=== PATIENT | female | born 2005 | race Caucasian/White ===

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

== ENCOUNTER 2023-08-29 07:02 | Inpatient (IN) | payer BC, MEDICAID, SELFPAY ==
[2023-08-29] VITALS (63 sets, daily range): BP systolic 102–154; BP diastolic 53–88; PULSE 65–153; TEMP 36.3–37.6; O2SAT 96–100; BMI 31.1
--- NOTE | 2023-08-29 | PLAC_PTH ---
PATIENT: BRAYDON PEREZ LOC: [facility] U#:[id number] AGE/SX: 18/F ROOM: WP015 RE08/29/[address]: Dr. Sangeetha Mosley MD : 2005 BED: 1 DIS: 08/31/2023 SPEC #: [id number] RECD: 08/29/23 23:31 STATUS: RODRI NAHEED #: [id number] KRIS: 08/29/23 00:[address]: Sangeetha Mosley DEPT: SURGICAL PATHOLOGY RECD BY: Sujey Abarca ENTERED: 08/30/23 08:30 SP TYPE: PLACENTA OTHR DR: No Primary Care Phys Tissues: Placenta, NOS Procedures: Surgery Specimen Level V HEADER OPERATION: Vaginal delivery PRE-OP DIAGNOSIS: IUGR TISSUE SUBMITTED: Placenta MICROSCOPIC DIAGNOSIS Placenta: Placental disc - third trimester placenta (466 gm). - Focal peripheral area infarction, increased intervillous and perivillous fibrin deposition and calcifications. (1.5 cm in greatest dimension)> Membranes - mild acute chorioamnionitis. Umbilical cord - three blood vessels and no pathologic diagnosis. SJ:jensen 08/31/2023 MICROSCOPIC DESCRIPTION Slides are reviewed. GROSS DESCRIPTION SPECIMEN: PLACENTA / CLINICAL INFORMATION: A. Weight: 2.695 kg B. Gestational Age: 38 weeks C. Sex: Male PLACENTAL WEIGHT (POST FIXATION): 466 gm PLACENTAL DIMENSIONS: 17.0 x 15.0 x 3.0 cm PLACENTAL SHAPE: Usual ovoid PLACENTAL WEIGHT FOR GESTATIONAL AGE: Within 10-99th percentile MEMBRANES - Present A. Insertion: Marginal B. Site of rupture from edge: At edge of placental disc C. Color of membrane: Gonzalez-perkins D. Abnormalities: None UMBILICAL CORD - Present A. Color: Gonzalez-perkins B. Insertion: Eccentric and received in two pieces C. Length: 42.0 cm D. Diameter: 1.3 cm E. Number of vessels: Three F. Abnormalities: None PLACENTAL DISC - Present A. Color of surface: Gonzalez-perkins B. surface abnormalities: None C. Maternal cotyledons: Intact with minimal tears D. Attached retro placental clot: No clot E. Cut surface: Dark red and spongy F. Lesions: None G. Separate clot: 11.0 x 8.0 x 1.5 cm SECTIONS SUBMITTED: 1. Umbilical cord, end 2. Umbilical cord, placental end 3. Membrane roll 4. Placental disc, and maternal surfaces 5. Placental disc, and maternal surfaces 6. Placental disc, and maternal surfaces, peripheral portion AM:jensen 08/30/2023 TC:4 CPT: 80390
[2023-08-29] MEDS: Lactated Ringers 1,000 ML 50 ML IV (08:15)
[2023-08-29 08:51] LABS: Absolute Lymphocyte Count 2.69 X10^3/uL (0.83-4.51); Absolute Neutrophil Count 7.1 X10^3/uL (2.0-7.7); Basophil# 0.05 X10^3/uL; Basophil% 0.5 % (0-1); Eosinophil# 0.05 X10^3/uL; Eosinophils% 0.5 % (0-5); Hematocrit 35.6 % (37-47); Hemoglobin 11.2 g/dL (12.0-15.0); Lymphocyte # 2.69 X10^3/ul (0.83-4.51); Lymphocyte % 24.3 % (19-41); Mean Corp Hgb Conc 31.5 g/dL (32-36); Mean Corpuscular Hgb 27.4 pg (27.0-32.0); Mean Platelet Vol. 11.6 fl (6.2-12.0); Monocyte# 1.07 X10^3/uL; Monocyte% 9.7 % (0-10); NRBC Flagged by Analyzer 0 % (0-5); Neutrophil # 7.12 X10^3/uL (2.7-7.7); Neutrophil % 64.4 % (47-70); Platelet Count 330 K/mm3 (150-450); RBC Distribution Width CV 11.9 % (11.6-14.6); RBC Distribution Width SD 37.9 fl (35.1-43.9); Red Blood Count 4.09 M/mm3 (4.2-5.4); White Blood Count 11.1 K/mm3 (4.4-11.0)
[2023-08-29] MEDS: 0.9% Normal Saline Single 100 ML IV.SOLN. INTRA-UTER (09:07)
[2023-08-29 09:26] LABS: Syphilis Antibodies Non-reactive
[2023-08-29] MEDS: Oxytocin 15 Units/NS 250ml 15 UNITS/250 ML IV.SOLN 2 UNITS IV (09:33)
--- NOTE | 2023-08-29 12:36 | PCM.HP.OB ---
HPI - General General Date of Admission: 08/29/23 Date of Service: 08/29/23 Chief Complaint: induction of labor HPI Narrative BRAYDON PEREZ, is a 18 F who presents for induction of labor at 38-1/7 weeks gestation due to suspected intrauterine growth restriction. Estimated weight is below the 3rd percentile according to ultrasound performed in our office on 08/28/2023. BPP was 8 out of 8 that day and patient was scheduled for induction of labor today. She denies any vaginal bleeding or leaking of fluid. Had good movement. No regular contractions. Patient vomited during her glucose tolerance test and therefore checked blood sugars. She does not have gestational diabetes. Blood glucose levels were normal Maternal Data Information Final MIRA: 09/11/23 Gestational age: 38 1/7 PFSH PFSH Home Medications aspirin 81 mg tablet,delayed release (Adult Low Dose Aspirin) 81 mg PO DAILY Preventative pre-E. 08/29/23 [History Last Taken 08/28/23] vit 25-iron fum 30 mg iron-folate no6 1 mg-dha 200 mg capsule 1 cap PO DAILY 08/29/23 [History Last Taken 08/28/23] Allergy/AdvReac Type Severity Reaction Status Date / Time No Known Allergies Allergy Verified 03/11/19 21:28 Surgical History (Updated 08/29/23 @ 09:04 by Amarilis Braswell) History of esophageal surgery History of gastrointestinal surgery Social History Smoking Status: Never smoker History Elective abortions Hx Para 0 Spontaneous abortions Hx # Term Pregnancies Ectopic pregnancies Hx # Pregnancies Multiple births # of living children Vital Signs Vital Signs Vital Signs: 08/29/23 07:36 08/29/23 07:36 08/29/23 07:36 Temperature Temperature Source Temporal Pulse Rate 103 H Blood Pressure 134/74 H BP Systolic 134 BP Diastolic 74 Pulse Ox 08/29/23 07:36 08/29/23 08:13 08/29/23 08:13 Temperature 99.0 F Temperature Source Pulse Rate 94 Blood Pressure BP Systolic BP Diastolic Pulse Ox 100 08/29/23 08:18 08/29/23 08:18 08/29/23 08:58 Temperature Temperature Source Pulse Rate 73 Blood Pressure 125/72 H BP Systolic 125 BP Diastolic 72 Pulse Ox 98 08/29/23 08:58 08/29/23 08:58 08/29/23 08:58 Temperature 98.5 F Temperature Source Temporal Pulse Rate 98 Blood Pressure BP Systolic BP Diastolic Pulse Ox 08/29/23 10:10 08/29/23 10:10 08/29/23 10:10 Temperature Temperature Source Temporal Pulse Rate 83 Blood Pressure 134/78 H BP Systolic 134 BP Diastolic 78 Pulse Ox 08/29/23 10:10 08/29/23 11:02 08/29/23 11:03 Temperature 98.6 F Temperature Source Temporal Pulse Rate Blood Pressure 133/77 H BP Systolic 133 BP Diastolic 77 Pulse Ox 08/29/23 11:03 08/29/23 11:02 08/29/23 12:33 Temperature 98.4 F Temperature Source Pulse Rate 71 Blood Pressure 141/88 H BP Systolic 141 BP Diastolic 88 Pulse Ox 08/29/23 12:33 08/29/23 12:33 08/29/23 12:34 Temperature Temperature Source Temporal Pulse Rate 88 78 Blood Pressure BP Systolic BP Diastolic Pulse Ox 08/29/23 12:34 08/29/23 12:33 08/29/23 12:36 Temperature 98.1 F Temperature Source Pulse Rate Blood Pressure 128/82 H BP Systolic 128 BP Diastolic 82 Pulse Ox 99 08/29/23 12:36 Temperature Temperature Source Pulse Rate 90 Blood Pressure BP Systolic BP Diastolic Pulse Ox Weight Weight: 74.661 kg Body Mass Index (BMI) 31.1 Physical Exam Const alert and no apparent distress General Appearance: cooperative HEENT normocephalic Resp normal respiratory effort Cardio regular rate GI soft to palpation GI Narrative: gravid, nontender, appropriate for gestational age Extremity no calf tenderness General Extremity: edema Skin no wounds Rashes: No rashes noted Psych activity/motor behavior normal Labs Labs Labs: Blood Type A POSITIVE Antibody Screen NEGATIVE Hct 35.6 % (37-47) L Hgb 11.2 g/dL (12.0-15.0) L Syphilis Total Ab Non-reactive Assessment & Plan (1) 38 weeks gestation of : PLAN: Risk benefits and alternatives to induction of labor were discussed with the patient and she desired to proceed. Estimated weight is approximately 5 pounds according to ultrasound. Pelvis clinically adequate to expect vaginal delivery. Mccloud catheter was placed over stylette through the internal cervical os in the usual sterile fashion and the balloon inflated to 30 cc. Placement over internal os was confirmed and patient and fetus tolerated the procedure well. Will undergo Pitocin with artificial rupture membranes if needed induction of labor. Routine pain control measures as desired and indicated. I did review with the patient and her family there is an increased risk of section due to intolerance to labor with intrauterine growth restriction due to increased likelihood of placental insufficiency. (2) Nulliparity: (3) Encounter for induction of labor: (4) IUGR (intrauterine growth restriction) affecting care of mother:
[2023-08-29] MEDS: LACTATED RINGERS 500 ML 999 ML IV ×2 (14:51→17:52)
[2023-08-29] MEDS: fentaNYL-bupivacaine (epidural) 100 ML BAG EPIDURAL ×2 (16:16→20:30)
[2023-08-29] MEDS: Lactated Ringers 1,000 ML 200 ML IV (18:07)
[2023-08-29] MEDS: Ondansetron 4 MG/2 ML Vial IV (18:38)
[2023-08-29] MEDS: 0.9% Saline Lock 10 ML Syringe IV (20:33)
[2023-08-29] MEDS: Amnioinfusion- 0.9% NS 1,000 ML IV.SOLN. 1000 ML INTRA-UTER (21:48)
--- NOTE | 2023-08-29 23:32 | EX.PCM.OBRPT ---
Maternal Data Information Final MIRA: 09/11/23 Gestational age: 38 1/7 Vaginal Delivery Maternal Presentation Maternal Presentation: Medically Indicated Induction Type of Induction: Pitocin, Mccloud Bulb and Amniotomy Medical Reason for Induction: - (IUGR) Operative Information Date of Procedure: 08/29/23 Pre-Operative Diagnosis: labor Post-Operative Diagnosis: same Surgery / Procedure Performed: Spontaneous Vaginal Delivery Type of Anesthesia: Epidural Drain: Mccloud to straight drain Estimated Blood Loss: 300 Time of Delivery: 23:19 Findings Description of Procedure: A vigorous male infant was delivered GONSALO over a second-degree perineal laceration. A loose nuchal cord x2 was easily reduced. The remainder the infant was delivered with maternal pushing and gentle traction only in less than 15 seconds. The Pitocin infusion was initiated for active management of the third stage. The cord was clamped and cut after 1 minute. The infant was attended to by the waiting nursing staff. The placenta was delivered spontaneously and intact. The cervix and vagina were intact. The second-degree perineal laceration was repaired with 2-0 Vicryl suture in a running standard fashion. Sponge and needle counts were correct. A vaginal sweep was completed by me. Presentation: GONSALO Amniotic Membrane Rupture Type: Artificial Amniotic Fluid Description: Clear Placental Delivery Description: Spontaneous Placenta Disposition: Sent to Pathology Cord Vessel Description: 3 Vessels Cord Entanglement: Around neck x 2, loose Nuchal Cord Compression: Without compression Cord Gases: ABG and VBG Infant A Gender: Male (Giuliano) (1 minute): 8 (5 minute): 9 Delayed Cord Clamping: Yes Post Vaginal Delivery Medications Given After Delivery: IV Pitocin and IM Pitocin Episiotomy Description: None Laceration: 2nd degree Complication Complications: None Admit VTE Documentation VTE Present on Admission: No VTE Pharm Prophylaxis Ordered: No Reason Prophylaxis Not Ordered: Procedure Not Indicated
[2023-08-29] MEDS: Oxytocin 15 Units/NS 250ml 15 UNITS/250 ML IV.SOLN 83 UNITS IV (23:55)
[2023-08-30] VITALS (21 sets, daily range): BP systolic 110–142; BP diastolic 55–74; PULSE 76–112; RESP 14–16; TEMP 36.6–37.6; O2SAT 98–99
[2023-08-30 01:14] LABS: Pathology Specimen OB SEE PATHOLOGY REPORT
--- NOTE | 2023-08-30 12:55 | PCM.PN.OB ---
Subjective Subjective pain well controlled, aversge lochia Objective Data Objective Data Vital Signs: Vital Signs Temp Pulse Resp BP Pulse Ox O2 Del Method 97.9 F 108 H 16 127/74 H 98 Room Air 08/30/23 12:31 08/30/23 12:31 08/30/23 12:31 08/30/23 12:31 08/30/23 04:46 08/30/23 12:31 Oxygen Delivery Method Room Air Weight: 74.661 kg Body Mass Index (BMI) 31.1 Intake & Output: Intake and Output for Last 24 Hours 08/28/23 08/29/23 08/30/23 23:59 23:59 23:59 Intake Total 3169.70 / 3169.70 250 / 250 Output Total 1025 / 1025 1150 / 1150 Balance 2144.70 / 2144.70 -900 / -900 Lab / Micro Data 08/29/23 08:15 Physical Exam Const alert and no apparent distress Narrative: Fundus firm, below umbilicus. Assessment & Plan (1) (spontaneous vaginal delivery): PLAN: PPD#1 s/p doing well likely d/c home tomorrow bottlefeeding
[2023-08-30] MEDS: Acetaminophen 500 MG Tablet 1000 MG PO (23:21)
[2023-08-31] VITALS (7 sets, daily range): BP systolic 110–127; BP diastolic 63–87; PULSE 68–89; RESP 15–16; TEMP 36.8–37.3; O2SAT 99
--- NOTE | 2023-08-31 07:53 | PCM.DC.SUM ---
Providers Date of Admission: 08/29/23 Primary Care Physician: Leslie Primary Care Phys Reason For Visit: VAGINAL DELIVERY Diagnosis Discharge Diagnosis (1) (spontaneous vaginal delivery): Status: Acute Code(s): O80 - Encounter for full-term uncomplicated delivery Medications at Discharge Home Medications vit 25-iron fum 30 mg iron-folate no6 1 mg-dha 200 mg capsule 1 cap PO DAILY 08/29/23 Hospital Course Operations None Summary of Care Provided Minutes Spent on Discharge: 15 Hospital Course: Patient had . Hospital course was uneventful. Physical Exam Narrative Patient seen at bedside. Denies pain. Ambulating and voiding without difficulty. Formula feeding infant. Desires discharge home today. Const alert and no apparent distress General Appearance: cooperative and comfortable Exam Limitations: no limitations HEENT normocephalic Eyes General Eye: normal appearance of both eyes Neck full ROM General: normal visual inspection Chest Chest: symmetrical chest wall rise Resp normal respiratory effort and normal air movement Effort and Inspection: symmetric chest movement Auscultation: clear to auscultation bilaterally Cardio regular rate and regular rhythm GI normal to inspection, nondistended, normoactive bowel sounds Back/Spine normal ROM Extremity full ROM and no calf tenderness General Extremity: normal exam except as noted Skin no rashes or lesions noted Neuro CN's II-XII intact bilaterally Psych mental status grossly normal Weight / BMI Weight Weight: 164 lb 9.6 oz Body Mass Index (BMI) 31.1 ABG / Lab / Microbiology Data 08/29/23 08:15 D/C Instructions Discharge Diet: No restrictions Discharge Activity: Return to Normal Activity, May Shower and May Take a Tub Bath May resume sexual activity in: 4-6 weeks Weight Bearing Status: Weight bearing as tolerated Call your doctor if you observe: Fever of 101 or Higher, Inability to urinate, Using more than 1 pad per hour, Shortness of breath, Dizziness, Swelling in the ankles, Chest pain, Calf discomfort and Uncontrolled pain Please Follow Up With: Sangeetha Mosley MD When: Within 10 days Meaningful Use Info Meaningful Use Diagnoses (Choose all that apply): None applicable Discharge Plan Admission Admit Date/Time: 08/29/23 07:02 Primary Reason for Your Visit: Labor and Delivery Attending Provider: Sangeetha Mosley Primary Care Provider: Care Physician,Leslie Primary Discharge Orders/Prescriptions Prescriptions: Continued [id number] 6-dha 30 mg iron-1mg -200 mg capsule 1 cap PO DAILY Discontinued aspirin [Adult Low Dose Aspirin] 81 mg tablet,delayed release (DR/EC) 81 mg PO DAILY Referrals / Follow Up: Care Physician,No Primary [Primary Care Provider] - Disposition Disposition (needs filled in before D/C Order can be placed): Home, Self Care
== END 2023-08-31 14:15 | disposition home or self-care (01) | DRG 807 ==
PROVIDERS: Obstetrics & Gynecology; Admitting Provider Obstetrics & Gynecology; Referring Provider Obstetrics & Gynecology; Visit Provider Obstetrics & Gynecology
DX: O36.5930 Maternal care for other known or suspected poor fetal growth, third trimester, not applicable or unspecified (principal); Z37.0 Single live birth; O69.81X0 Labor and delivery complicated by cord around neck, without compression, not applicable or unspecified; O70.1 Second degree perineal laceration during delivery; Z3A.38 38 weeks gestation of pregnancy; Z79.82 Long term (current) use of aspirin
CPT/HCPCS: 59025; 59050; 85025; 86780; 86850; 86900; 86901; 88307; 99221; J7030; J7120; A4216; G0378; J2405